=== PATIENT | female | born 1985 | race African-American/Black ===

== ENCOUNTER 2016-07-15 13:16 | Emergency (ER) | payer OTHER ==
[2016-07-15 13:37] VITALS: BP 140/80; PULSE 83; TEMP 97.5; BMI 23.3
--- NOTE | 2016-07-15 14:20 | PDOC ---
History of Present Illness - General Chief Complaint: Pain Stated Complaint: PAIN R FOOT Time Seen by Provider: 07/15/16 13:42 History Source: Patient Exam Limitations: No Limitations - History of Present Illness Initial Comments: 07/15/16 14:15 31-year-old female presents to the ED with complaints of right toe injury. 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 Patient states has been able to ambulate but has pain with step off. Patient denies previous injury to the affected area, radiation of pain, or history of immunosuppression. Timing/Duration: 1/2 hour Severity: mild Associated Symptoms: reports: denies symptoms Past History - Past Medical History Allergies/Adverse Reactions: Allergies Allergy/AdvReac Type Severity Reaction Status Date / Time No Known Allergies Allergy Verified 07/15/16 13:34 Home Medications: Ambulatory Orders NK [No Known Home Medication] 07/15/16 Asthma: Yes (CHILDHOOD) - Reproductive History LMP Normal: Yes Is Patient Now?: No - Immunization History Immunization Up to Date: Yes - Psycho/Social/Smoking Cessation Hx Anxiety: No Suicidal Ideation: No Smoking Status: No Smoking History: Never smoked Number of Cigarettes Smoked Daily: 0 Hx Alcohol Use: Yes (OCCASIONALLY) Drug/Substance Use Hx: No Substance Use Type: Alcohol Patient Lives Alone: No Lives with/in: spouse/SO Review of Systems - Review of Systems Able to Perform ROS?: Yes Musculoskeletal: Yes: Joint Pain (right first toe) Integumentary: No: Bruising, Erythema Neurological: No: Tingling *Physical Exam - Vital Signs Last Vital Signs Temp Pulse Resp BP Pulse Ox 97.5 F L 83 19 140/80 100 07/15/16 13:34 07/15/16 13:34 07/15/16 13:34 07/15/16 13:34 07/15/16 13:34 - Physical Exam General Appearance: Yes: Nourished, Appropriately Dressed. No: Apparent Distress HEENT: negative: Pale Conjunctivae Extremity: positive: Normal Capillary Refill, Normal Inspection, Normal Range of Motion (but with noted discomfort upon flexion of rt 1st toe dip joint) Integumentary: positive: Normal Color, Warm, Moist. negative: Swelling, Ecchymosis Neurologic: positive: Motor Strength 5/5 (ambulatory). negative: Sensory Deficit Medical Decision Making - Medical Decision Making 07/15/16 14:22 Patient with complaints of right first toe pain after it was ran over by a stretcher unoccupied by patient. Patient on exam had point tenderness at the right DIP joint but had full range of motion. At this time I recommend patient take Motrin apply ice and elevate. If pain continues tomorrow since she is on duty recommended to patient that she gets reevaluated. *DC/Admit/Observation/Transfer Diagnosis at time of Disposition: Toe pain, right - Discharge Dispostion Disposition: HOME Condition at time of disposition: Good - Patient Instructions Printed Discharge Instructions: DI for Contusion Additional Instructions: I recommend to take Motrin every 8 hours for inflammation and discomfort. Apply ice as much as you can tolerate for the next 2 days. Please elevate your foot to alleviate swelling if pain continues tomorrow at the same or worse level please be reevaluated.
[2016-07-15] MEDS ORDERED: IBUPROFEN 600 MG TABLET (FP) PO ONE ×2 (14:23→14:26)
== END 2016-07-15 14:39 | disposition home or self-care (01) ==
LOC: JERFT 13:16
DX: S90.111A Contusion of right great toe without damage to nail, initial encounter (principal); W22.8XXA Striking against or struck by other objects, initial encounter; Y93.89 Activity, other specified; Y92.238 Other place in hospital as the place of occurrence of the external cause; Y99.0 Civilian activity done for income or pay
CPT/HCPCS: 99281-25

== ENCOUNTER 2016-07-22 08:45 | Emergency (ER) | payer OTHER ==
[2016-07-22 08:49] VITALS: BP 126/72; PULSE 71; TEMP 98.5; BMI 23.6
--- NOTE | 2016-07-22 10:13 | PDOC ---
History of Present Illness - General Chief Complaint: Pain Stated Complaint: ABSCESS ON LT INDEX Time Seen by Provider: 07/22/16 09:20 History Source: Patient - History of Present Illness Occurred: reports: other Upper Extremity Pain Location: right: 2nd finger Past History - Past Medical History Allergies/Adverse Reactions: Allergies Allergy/AdvReac Type Severity Reaction Status Date / Time No Known Allergies Allergy Verified 07/22/16 08:49 Home Medications: Ambulatory Orders NK [No Known Home Medication] 07/15/16 Asthma: Yes (CHILDHOOD) - Immunization History Immunization Up to Date: Yes - Psycho/Social/Smoking Cessation Hx Anxiety: No Suicidal Ideation: No Smoking Status: No Smoking History: Never smoked Number of Cigarettes Smoked Daily: 0 Information on smoking cessation initiated: No Hx Alcohol Use: No Drug/Substance Use Hx: No Substance Use Type: None Review of Systems - Review of Systems Constitutional: No: Chills, Fever Integumentary: No: Erythema Neurological: No: Numbness *Physical Exam - Vital Signs Last Vital Signs Temp Pulse Resp BP Pulse Ox 98.5 F 71 18 126/72 99 07/22/16 08:46 07/22/16 08:46 07/22/16 08:46 07/22/16 08:46 07/22/16 08:46 - Physical Exam General Appearance: Yes: Appropriately Dressed. No: Apparent Distress HEENT: positive: Normal Voice Neck: positive: Supple Respiratory/Chest: negative: Respiratory Distress Extremity: positive: Other (~0.5 cm firm, smooth, rounded, rubbery swelling to base of R 2nd MCP, c/w ganglionic cyst) Integumentary: positive: Dry, Warm Neurologic: positive: Fully Oriented, Alert, Normal Mood/Affect Medical Decision Making - Medical Decision Making 07/22/16 10:07 31-year-old female, endorses history of localized swelling to second digit of R hand x 1 and 1/2 years, was seen in the ED but does not remember dx, here today because swelling have gradually gotten bigger x 2 months and now have discomfort with palpation and movement of finger. Pt well janneth and stable w/ ganglionic cyst to base of R 2nd MCP of volar aspect of R hand, FROM intact to finger. No e/o abscess as noted at triage. Dc w/ hand f/u for further evaluation /treatment *DC/Admit/Observation/Transfer Diagnosis at time of Disposition: Ganglion cyst - Discharge Dispostion Disposition: HOME Condition at time of disposition: Good - Referrals Referrals: Keaton Damon MD [Staff Physician] - - Patient Instructions Printed Discharge Instructions: Ganglion Cyst Additional Instructions: Please follow-up with Dr. Damon of orthopedics - Post Discharge Activity
== END 2016-07-22 09:37 | disposition home or self-care (01) ==
LOC: JERFT 08:45
DX: M67.441 Ganglion, right hand (principal)
CPT/HCPCS: 99281-25

== ENCOUNTER 2018-03-03 08:14 | Emergency (ER) | payer OTHER ==
[2018-03-03 08:54] VITALS: BP 115/81; PULSE 79; TEMP 98.6; BMI 21.2
--- NOTE | 2018-03-03 08:58 | PDOC ---
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 Denies swelling to face lips, no problems breathing. States left hand has a point tenderness and is pruritic 03/03/18 18:02 Timing/Duration: unsure, 24 hours Severity: mild, moderate Past History - Travel Traveled outside of the country in the last 30 days: No Close contact w/someone who was outside of country & ill: No - Past Medical History Allergies/Adverse Reactions: Allergies Allergy/AdvReac Type Severity Reaction Status Date / Time No Known Allergies Allergy Verified 03/03/18 08:26 Home Medications: Ambulatory Orders NK [No Known Home Medication] 07/15/16 Asthma: Yes COPD: No - Immunization History Immunization Up to Date: Yes - Suicide/Smoking/Psychosocial Hx Smoking Status: No Smoking History: Never smoked Have you smoked in the past 12 months: No Number of Cigarettes Smoked Daily: 0 Hx Alcohol Use: No Drug/Substance Use Hx: No Substance Use Type: None Review of Systems - Review of Systems Able to Perform ROS?: Yes Is the patient limited French proficient: Yes Constitutional: Yes: See HPI. No: Symptoms Reported, Fever, Malaise HEENTM: Yes: See HPI. No: Symptoms Reported Respiratory: Yes: See HPI. No: Symptoms reported, Cough, Wheezing Musculoskeletal: Yes: Symptoms Reported, See HPI, Muscle Pain Integumentary: Yes: Symptoms Reported, See HPI, Erythema, Pruritus All Other Systems: Reviewed and Negative *Physical Exam - Vital Signs Last Vital Signs Temp Pulse Resp BP Pulse Ox 98.6 F 79 16 115/81 98 03/03/18 08:26 03/03/18 08:26 03/03/18 08:26 03/03/18 08:26 03/03/18 08:26 - Physical Exam General Appearance: Yes: Nourished, Appropriately Dressed, Apparent Distress, Mild Distress HEENT: positive: SHANNON, Normal ENT Inspection, TMs Normal, Pharynx Normal. negative: Muffled/Hoarse voice, Tonsillar Erythema, Rhinorrhea Neck: positive: Supple. negative: Tender, Lymphadenopathy (R), Lymphadenopathy (L) Respiratory/Chest: positive: Lungs Clear Musculoskeletal: positive: Normal Inspection Extremity: positive: Normal Capillary Refill, Normal Range of Motion, Tender ( swelling with point lesion consistent with a type of insect bite to lateral aspect of left hand. No evidence of retained foreign body or stinger. Has full range of motion of fingers, and neurovascular intact). 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 Dressed with bacitracin ointment. Encouraged to use ice packs and given dose of Claritin of patient's own supply and will reevaluate in one hour. 03/03/18 10:27 After using ice and elevating, and one hour post Claritin dosing hand appears to be less swollen, less painful and pruritic. We'll discharge with plan to continue treatment for insect reaction and monitor for any changes in erythema evidence of infection. *DC/Admit/Observation/Transfer Diagnosis at time of Disposition: Insect bite Qualifiers: Encounter type: initial encounter Qualified Code(s): W57.XXXA - Bitten or stung by nonvenomous insect and other nonvenomous arthropods, initial encounter - Discharge Dispostion Disposition: HOME Condition at time of disposition: Stable Decision to Admit order: No - Referrals Referrals: Lorena Man MD [Primary Care Provider] - - Patient Instructions Printed Discharge Instructions: DI for Insect Bites and Stings Additional Instructions: Rest, keep cool and dry- avoid strenuous activity or hot /humid environments Less hot showers, no abrasive soaps May use ice packs, cool cloth on itching lesions May use heavy creams like Eucerin or Cetaphil to keep skin moist May apply Aveeno, calamine lotion, [id number] hydrocortisone creams as needed for symptoms May use Benadryl at night for antihistamine, Zyrtec/ Nkechi or Claritin for daytime antihistamine use to help with itching A use aloe vera gel to help assist with itching and inflammatory response May use [id number] hydrocortisone cream on all areas except face Try to identify cause for rash and avoid exposures Be sure to use insect sprays/repellent, ones with DEET are the most effective when outdoors Followup with PMD in one week if no resolution Make appointment with automatic thread winder for evaluation when possible Return to emergency department for worsening swelling, pus or purulent drainage from areas or any changes with swelling to lips, tongue, face or breathing problems from ALLERGIC reaction. - Post Discharge Activity Forms/Work/School Notes: Back to Work
== END 2018-03-03 10:27 | disposition home or self-care (01) ==
LOC: JER 08:14
DX: M79.89 Other specified soft tissue disorders (principal); W57.XXXA Bitten or stung by nonvenomous insect and other nonvenomous arthropods, initial encounter; Y93.89 Activity, other specified; Y92.512 Supermarket, store or market as the place of occurrence of the external cause; J45.909 Unspecified asthma, uncomplicated
CPT/HCPCS: 99281-25

== ENCOUNTER 2018-06-16 08:12 | Emergency (ER) | payer OTHER ==
[2018-06-16 08:33] VITALS: BP 119/72; PULSE 91; TEMP 98.4; BMI 21.2
[2018-06-16] MEDS ORDERED: ACETAMINOPHEN 1000 MG/100 ML VIAL (NON FORMULARY) IVPB ONE (09:03)
[2018-06-16] MEDS ORDERED: SODIUM CHLORIDE 0.9% 1000 ML INFUS.BAG IV ONE ×2 (09:03→10:42)
[2018-06-16] MEDS ORDERED: ONDANSETRON 4 MG/2 ML VIAL IVPUSH ONE (09:03)
[2018-06-16] MEDS ORDERED: ACETAMINOPHEN INJECTION 100 ML IVPB ONE (09:13)
[2018-06-16] MEDS ORDERED: ONDANSETRON 4 MG/2 ML VIAL ONE (09:13)
--- NOTE | 2018-06-16 09:13 | PDOC ---
History of Present Illness - General Chief Complaint: Pain, Acute Stated Complaint: Nausea/Vomiting Time Seen by Provider: 06/16/18 09:02 History Source: Patient Exam Limitations: No Limitations - History of Present Illness Initial Comments: 06/16/18 09:25 32 yo F with a hx of asthma presenting with N/V with epigastric pain. Per the patient, she states she was having epigastric discomfort yesterday and this morning has 2 x emesis events NBNB. Epigastric pain is 10/10, cramping, constant , non radiating, with no aggravating or relieving factors. Denies diarrhea, recent sick contacts, fever, chills, hematochezia, dysuria, and leg pain/ swelling. LMP in April 2018 and they are normally irregular. Denies hx of pancreatitis, cholelithiasis, and abdominal surgery. Shx: None Meds: None Allergies: NKDA Social: Denies tobacco, alcohol, and substance abuse. 06/16/18 09:29 Past History - Past Medical History Allergies/Adverse Reactions: Allergies Allergy/AdvReac Type Severity Reaction Status Date / Time No Known Allergies Allergy Verified 03/03/18 08:26 Home Medications: Ambulatory Orders Ondansetron [Zofran Odt -] 4 mg SL TID #21 od.tablet 06/16/18 Asthma: Yes COPD: No - Immunization History Immunization Up to Date: Yes - Suicide/Smoking/Psychosocial Hx Smoking Status: No Smoking History: Never smoked Have you smoked in the past 12 months: No Number of Cigarettes Smoked Daily: 0 Hx Alcohol Use: No Drug/Substance Use Hx: No Substance Use Type: None Review of Systems - Review of Systems Able to Perform ROS?: Yes Is the patient limited Bulgarian proficient: No Constitutional: No: Chills, Diaphoresis, Fever, Weakness HEENTM: No: Eye Pain, Recent change in vision, Ear Pain, Nose Pain, Throat Pain , Mouth Pain Respiratory: No: Cough, Shortness of Breath, Hemoptysis Cardiac (ROS): No: Chest Pain, Lightheadedness, Palpitations, Syncope, Chest Tightness ABD/GI: Yes: Nausea, Vomiting, Abdominal cramping. No: Constipated, Diarrhea, Poor Appetite, Poor Fluid Intake, Rectal Bleeding, Tarry Stools : No: Burning, Dysuria, Frequency, Hematuria Musculoskeletal: No: Back Pain, Joint Pain, Neck Pain Integumentary: No: Bruising, Erythema, Rash Neurological: No: Headache, Numbness, Tingling, Ataxia, Dizziness Psychiatric: No: Change in Appetite Endocrine: No: Unexplained Weight Gain Hematologic/Lymphatic: No: Anemia *Physical Exam - Vital Signs Last Vital Signs Temp Pulse Resp BP Pulse Ox 98.4 F 91 H 20 119/72 99 06/16/18 08:13 06/16/18 08:13 06/16/18 08:13 06/16/18 08:13 06/16/18 08:13 - Physical Exam General Appearance: Yes: Nourished, Appropriately Dressed. No: Apparent Distress HEENT: positive: EOMI, SHANNON, Normal Voice, Symmetrical, Pharynx Normal, Nasal Congestion, Hearing Grossly Normal. negative: Pale Conjunctivae, Scleral Icterus (R), Scleral Icterus (L), Muffled/Hoarse voice, Pharyngeal Erythema, Tonsillar Exudate, Tonsillar Erythema, Excessive drooling Neck: positive: Trachea midline, Supple. negative: Tender, Lymphadenopathy (R) , Lymphadenopathy (L), Tender lateral, Tender midline Respiratory/Chest: positive: Lungs Clear, Normal Breath Sounds. negative: Chest Tender, Respiratory Distress, Accessory Muscle Use Cardiovascular: positive: Regular Rhythm, Regular Rate, S1, S2. negative: Systolic Murmur Gastrointestinal/Abdominal: positive: Normal Bowel Sounds, Tender (epigastric region), Flat, Soft Lymphatic: negative: Adenopathy Musculoskeletal: positive: Normal Inspection. negative: CVA Tenderness, Vertebral Tenderness Extremity: positive: Normal Capillary Refill, Normal Inspection, Normal Range of Motion. 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 negative: EOM Palsy, Facial Droop Moderate Sedation - Procedure Monitoring Vital Signs: Procedure Monitoring Vital Signs Temperature 98.4 F 06/16/18 08:13 Pulse Rate 91 H 06/16/18 08:13 Respiratory Rate 20 06/16/18 08:13 Blood Pressure 119/72 06/16/18 08:13 O2 Sat by Pulse Oximetry (%) 99 06/16/18 08:13 ED Treatment Course - LABORATORY CBC & Chemistry Diagram: 06/16/18 09:04 06/16/18 09:00 - Medications Given in the ED: ED Medications Discontinued Medications Generic Name Dose Route Start Last Admin Trade Name Adry PRN Reason Stop Dose Admin Sodium Chloride 1,000 ml 06/16/18 09:03 06/16/18 09:11 Normal Saline - IV 06/16/18 09:04 1,000 ml ONCE ONE Administration Medical Decision Making - Medical Decision Making 32 yo F with a hx of asthma presenting with N/V with epigastric pain. Per the patient, she states she was having epigastric discomfort yesterday and this morning has 2 x emesis events NBNB. Initial vitals; Initial Vital Signs Temp Pulse Resp BP Pulse Ox 98.4 F 91 H 20 119/72 99 06/16/18 08:13 06/16/18 08:13 06/16/18 08:13 06/16/18 08:13 06/16/18 08:13 work up: ddx: gastroenteritis vs pancreatitis vs gastritis vs GERD vs influenza vs UTI Laboratory Tests 06/16/18 06/16/18 06/16/18 09:00 09:00 09:04 WBC 3.8 L RBC 4.32 Hgb 13.3 Hct 38.5 MCV 89.1 MCH 30.8 MCHC 34.6 RDW 13.2 Plt Count 262 MPV 8.7 Absolute Neuts (auto) 1.6 Neutrophils % 42.6 L Lymphocytes % 39.2 Monocytes % 12.6 H Eosinophils % 4.2 Basophils % 1.4 Nucleated RBC % 0 Sodium 138 Potassium 4.1 Chloride 107 Carbon Dioxide 25 Anion Gap 6 L BUN 8 Creatinine 0.7 Creat Clearance w eGFR > 60 Random Glucose 81 Calcium 9.3 Total Bilirubin 0.5 AST 24 ALT 18 Alkaline Phosphatase 65 Total Protein 8.5 H Albumin 4.4 Lipase 232 Beta HCG, Quant 1.5 Urine Color Urine Appearance Urine pH Ur Specific Gore Urine Protein Urine Glucose (UA) Urine Ketones Urine Blood Urine Nitrite Urine Bilirubin Urine Urobilinogen Ur Leukocyte Esterase Urine HCG, Qual Influenza A (Rapid) Negative Influenza B (Rapid) Negative 06/16/18 06/16/18 10:39 10:39 WBC RBC Hgb Hct MCV MCH MCHC RDW Plt Count MPV Absolute Neuts (auto) Neutrophils % Lymphocytes % Monocytes % Eosinophils % Basophils % Nucleated RBC % Sodium Potassium Chloride Carbon Dioxide Anion Gap BUN Creatinine Creat Clearance w eGFR Random Glucose Calcium Total Bilirubin AST ALT Alkaline Phosphatase Total Protein Albumin Lipase Beta HCG, Quant Urine Color Ltyellow Urine Appearance Clear Urine pH 7.0 D Ur Specific Gore 1.010 Urine Protein Negative Urine Glucose (UA) Negative Urine Ketones Negative Urine Blood Negative Urine Nitrite Negative Urine Bilirubin Negative Urine Urobilinogen Negative Ur Leukocyte Esterase Negative Urine HCG, Qual Negative Influenza A (Rapid) Influenza B (Rapid) labs within normal limits with negative lipase and influenza. patient was given GI cocktail with tylenol and fluids. she had significant improvement in her symptoms as wishes to be discharged. the patient was given strict return precautions and was well appearing and ambulatory at the time of discharge. Dispo: Discharge 06/17/18 22:55 *DC/Admit/Observation/Transfer Diagnosis at time of Disposition: Nausea & vomiting Qualifiers: Vomiting type: unspecified Vomiting Intractability: non-intractable Qualified Code(s): R11.2 - Nausea with vomiting, unspecified - Discharge Dispostion Disposition: HOME Condition at time of disposition: Stable Decision to Admit order: No - Prescriptions Prescriptions: Ondansetron [Zofran Odt -] 4 mg SL TID #21 od.tablet - Referrals Referrals: Lorena Man MD [Primary Care Provider] - - Patient Instructions Printed Discharge Instructions: DI for Vomiting -- Adult Additional Instructions: you were seen in the emergency department for the evaluation of nausea and vomiting. please follow up with your primary medical doctor within 1 week after discharge for follow up care and management. please return to the emergency department if you have worsening of symptoms or new concerning symptoms such as uncontrollable nausea and vomiting, fevers, shortness of breath, and chest pain. Thank you. - Post Discharge Activity Forms/Work/School Notes: Back to Work
[2018-06-16 09:18] LABS: BASO % 1.4 % (0-2.0); EOS % 4.2 % (0-4.5); HEMATOCRIT 38.5 % (32.4-45.2); HEMOGLOBIN 13.3 GM/dL (10.7-15.3); LYMPH % 39.2 % (8-40); MCH 30.8 pg (25.7-33.7); MCHC 34.6 g/dl (32.0-36.0); MEAN CELL VOLUME 89.1 fl (80-96); MEAN PLT VOLUME 8.7 fl (7.5-11.1); MONO % 12.6 % (3.8-10.2); NEUT % 42.6 % (42.8-82.8); PLATELET COUNT 262 K/MM3 (134-434); RBC 4.32 M/mm3 (3.60-5.2); RDW 13.2 % (11.6-15.6); WHITE BLOOD COUNT 3.8 K/mm3 (4.0-10.0)
[2018-06-16 09:58] LABS: ALBUMIN 4.4 g/dl (3.4-5.0); ALK PHOS 65 U/L (45-117); ANION GAP 6 MMOL/L (8-16); BILIRUBIN,TOTAL 0.5 mg/dL (0.2-1); BLOOD UREA NITROGEN 8 mg/dL (7-18); CALCIUM 9.3 mg/dL (8.5-10.1); CHLORIDE 107 mmol/L (98-107); CO2 25 mmol/L (21-32); CREATININE 0.7 mg/dL (0.55-1.3); GLUCOSE,RANDOM 81 mg/dL (74-106); LIPASE 232 U/L (73-393); POTASSIUM 4.1 mmol/L (3.5-5.1); SGOT/AST 24 U/L (15-37); SGPT/ALT 18 U/L (13-61); SODIUM 138 mmol/L (136-145); TOT PROT 8.5 g/dl (6.4-8.2)
--- NOTE | 2018-06-16 10:13 | PDOC ---
Attending Attestation - HPI HPI: 06/16/18 10:33 The patient is a 32 year old female with no significant PMH of who presents to the emergency department with nausea and vomiting since earlier this morning. The patient reports that she experienced some epigastric pain yesterday and today before her onset of her symptoms. She states that she experience 2 episodes of vomiting with her epigastric pain this morning. The patient states that her epigastric pain is crampy and constant and 10/10 in severity. She denies any worsening or alleviating factors. She denies any new food, or sick contacts. She state that her lmp al 04/2018 (regularly irregular). The patient denies any other symptoms. She denies any fever, chills, diarrhea, constipation , chest pain, shortness of breath, headache of dizziness. The patient denies any other complaints. - Physicial Exam PE: 06/16/18 10:34 Vitals: Triage vital signs reviewed General Appearance: No acute distress, well nourished, well developed Head: Atraumatic Neck: Supple; No nuchal rigidity Chest Wall: Nontender Cardiac: Regular rate and rhythm, no murmurs, no rubs, no gallops Lungs: Clear to auscultation bilateral, good air movement bilaterally Abdomen: (+)epigastric pain. Soft, nondistended, normal bowel sounds, nontender to palpation Extremities: Full range of motion to all extremities, no cyanosis, clubbing, or edema Skin: Warm and dry, no rashes or lesions, no rash, no petechiae Neuro: AOX3; Cranial Nerves 2-12 grossly intact, Strength intact to all extremities, Sensation intact to all extremities, gait normal Psych: Normal mood, normal affect - Medical Decision Making 06/16/18 10:34 The patient is a 32 year old female with no significant PMH of who presents to the emergency department with nausea and vomiting since earlier this morning. She will get more fluids and nausea medication. <Leonardo Real - Last Filed: 06/16/18 10:33> - Resident Resident Name: [place] - ED Attending Attestation I have performed the following: I have examined & evaluated the patient, The case was reviewed & discussed with the resident, I agree w/resident's findings & plan, Exceptions are as noted - Medical Decision Making History examination consistent with viral GI illness mild epigastric pain on exam we'll check labs hydrate GI cocktail observe and reassess Patient feels much better after GI cocktail abdominal pain resolved We'll discharge home with one-day work note History examination most consistent with viral illness Findings, the need for follow-up and strict return instructions discussed patient. <Harris Gore - Last Filed: 06/16/18 14:11> Attestations - Attestations 06/16/18 10:34 Documentation prepared by Leonardo Real, acting as medical corps officer for Harris Gore MD. <Leonardo Real - Last Filed: 06/16/18 10:33>
[2018-06-16] MEDS ORDERED: FAMOTIDINE 20 MG/50 ML IVPB 20 MG/50 ML MG IVPB ONE ×2 (10:41→10:45)
[2018-06-16] MEDS ORDERED: METOCLOPRAMIDE HCL INJECTION 10 MG/2 ML VIAL IVPUSH ONE (10:41)
[2018-06-16] MEDS ORDERED: METOCLOPRAMIDE HCL INJECTION 10 MG/2 ML VIAL ONE (10:45)
[2018-06-16 11:13] LABS: URINE APPEARANCE CLEAR; URINE BILIRUBIN NEGATIVE (<2.0 mg/dL); URINE COLOR LTYELLOW; URINE GLUCOSE (UA) NEGATIVE (NEGATIVE); URINE KETONE NEGATIVE (NEGATIVE); URINE LEUK ESTERASE NEGATIVE (NEGATIVE); URINE NITRITE NEGATIVE (NEGATIVE); URINE PROTEIN NEGATIVE (NEGATIVE); URINE UROBILINOGEN NEGATIVE mg/dL (0.2-1.0)
== END 2018-06-16 11:40 | disposition home or self-care (01) ==
LOC: JER 08:12
PROC: 3E033GC Introduction of Other Therapeutic Substance into Peripheral Vein, Percutaneous Approach (ICD-10-PCS; principal; 2018-06-16)
PROC: 3E033GC Introduction of Other Therapeutic Substance into Peripheral Vein, Percutaneous Approach (ICD-10-PCS; 2018-06-16)
PROC: 3E033GC Introduction of Other Therapeutic Substance into Peripheral Vein, Percutaneous Approach (ICD-10-PCS; 2018-06-16)
PROC: 3E033NZ Introduction of Analgesics, Hypnotics, Sedatives into Peripheral Vein, Percutaneous Approach (ICD-10-PCS; 2018-06-16)
DX: R11.2 Nausea with vomiting, unspecified (principal); Z87.09 Personal history of other diseases of the respiratory system
CPT/HCPCS: 36415; 80053; 81003; 83690; 84702; 84703; 85025; 87804; 99283-25; J0131; J7030

== ENCOUNTER 2018-10-12 08:07 | Emergency (ER) | payer OTHER | END 2018-10-12 10:28 | disposition home or self-care (01) | LOC: JERFT 08:07 ==

== ENCOUNTER 2019-03-21 07:35 | Emergency (ER) | payer OTHER ==
[2019-03-21 07:44] VITALS: BP 122/68; PULSE 80; TEMP 98.2; BMI 25.7
[2019-03-21] MEDS ORDERED: PSEUDOEPHEDRINE HCL 30 MG TABLET PO ONE (08:50)
[2019-03-21] MEDS ORDERED: DEXAMETHASONE LIQUID 0.5 MG/5 ML PO ONE (08:50)
--- NOTE | 2019-03-21 08:50 | PDOC ---
History of Present Illness - General Chief Complaint: Sore Throat Stated Complaint: SORE THROAT Time Seen by Provider: 03/21/19 07:50 Past History - Past Medical History Allergies/Adverse Reactions: Allergies Allergy/AdvReac Type Severity Reaction Status Date / Time No Known Allergies Allergy Verified 03/21/19 07:44 Home Medications: Ambulatory Orders Albuterol Sulfate Inhaler - [Ventolin Hfa Inhaler -] 1 - 2 inh PO QID PRN Ibuprofen 600 mg PO Q6H #30 tablet 03/21/19 Pseudoephedrine HCl 30 mg PO Q8H #21 tablet 03/21/19 Asthma: Yes COPD: No - Immunization History Immunization Up to Date: Yes - Psycho Social/Smoking Cessation Hx Smoking Status: No Smoking History: Never smoked Have you smoked in the past 12 months: No Number of Cigarettes Smoked Daily: 0 Information on smoking cessation initiated: No Hx Alcohol Use: No Drug/Substance Use Hx: No Substance Use Type: None *Physical Exam - Vital Signs Last Vital Signs Temp Pulse Resp BP Pulse Ox 98.2 F 80 18 122/68 100 03/21/19 07:42 03/21/19 07:42 03/21/19 07:42 03/21/19 07:42 03/21/19 07:42 Discharge - Discharge Information Problems reviewed: Yes Clinical Impression/Diagnosis: Pharyngitis Qualifiers: Pharyngitis/tonsillitis etiology: unspecified etiology Qualified Code(s): J02.9 - Acute pharyngitis, unspecified Condition: Stable Disposition: HOME - Admission No - Additional Discharge Information Prescriptions: Ibuprofen 600 mg PO Q6H #30 tablet Pseudoephedrine HCl 30 mg PO Q8H #21 tablet - Follow up/Referral Referrals: Lorena Man MD [Primary Care Provider] - - Patient Discharge Instructions Patient Printed Discharge Instructions: DI for Pharyngitis/Tonsillopharyngitis -- Adult Additional Instructions: You have a sore throat or pharyngitis. Rapid strep testing was negative today. You may take Motrin 600 mg every 6 hours as needed for pain. Please do warm water gargles and cough drops to help with your pain. Change your toothbrush when you started feeling better. Follow-up with your primary care doctor. Return to the ER for fever, difficulty breathing, difficulty swallowing, or if you have any changes in your symptoms. - Post Discharge Activity Work/Back to School Note: Back to Work
[2019-03-21] MEDS ORDERED: DEXAMETHASONE SOD PHOSPHATE 10 MG/1 ML VIAL ONE (08:55)
== END 2019-03-21 10:24 | disposition home or self-care (01) ==
LOC: JER 07:35
DX: J02.9 Acute pharyngitis, unspecified (principal); J45.909 Unspecified asthma, uncomplicated
CPT/HCPCS: 87070; 87880; 99281-25

== ENCOUNTER 2019-12-31 10:22 | Emergency (ER) | payer OTHER ==
[2019-12-31 10:28] VITALS: BP 115/83; PULSE 89; TEMP 99; BMI 27.1
[2019-12-31] MEDS ORDERED: KETOROLAC TROMETHAMINE 60 MG/2 ML VIAL IM ONE (10:40)
[2019-12-31] MEDS ORDERED: METHOCARBAMOL 500 MG TABLET PO ONE (10:40)
[2019-12-31] MEDS ORDERED: KETOROLAC TROMETHAMINE 60 MG/2 ML VIAL ONE (10:46)
[2019-12-31] MEDS ORDERED: METHOCARBAMOL 500 MG TABLET ONE (10:46)
--- NOTE | 2019-12-31 10:48 | PDOC ---
History of Present Illness - General Chief Complaint: Pain Stated Complaint: LT HAND NUMBNESS Time Seen by Provider: 12/31/19 10:33 History Source: Patient Exam Limitations: Clinical Condition - History of Present Illness Initial Comments: 12/31/19 10:42 Patient with no significant past medical history present with complaint of persistent worsening posterior right shoulder and scapular pain which is worse with elevation of arm and arm movement for 3 days without any trauma or injury. Patient also reports 2 days history of pain to palmar aspect of left hand with tingling sensation in left fingers without trauma. 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 Patient has not taken anything for symptoms. Patient reported posterior right shoulder and scapular pain started after scratching her back few days ago. Patient described pain as severe aching pain. Denies any other symptoms Is this a multiple visit Asthma Patient?: No Timing/Duration: other (3 days) Past History - Medical History Allergies/Adverse Reactions: Allergies Allergy/AdvReac Type Severity Reaction Status Date / Time No Known Allergies Allergy Verified 12/31/19 10:25 Home Medications: Ambulatory Orders Methocarbamol [Robaxin -] 500 mg PO BID PRN #14 tablet 12/31/19 Naproxen 500 mg PO BID PRN #20 tablet 12/31/19 Asthma: Yes COPD: No - Reproductive History Is Patient Now?: No - Immunization History Immunization Up to Date: Yes - Psycho-Social/Smoking History Smoking Status: No Smoking History: Never smoked Have you smoked in the past 12 months: No Number of Cigarettes Smoked Daily: 0 - Substance Abuse Hx (Audit-C & DAST Scrn) How often the patient has a drink containing alcohol: Never Score: In Men: 4 or > Positive; In Women: 3 or > Positive: 0 Screen Result (Pos requires Nsg. Audit-10AR): Negative In the last yr the pt used illegal drug/Rx for NonMed reason: No Score: Yes response is considered Positive: 0 Screen Result (Positive result requires Nsg. DAST-10): Negative Review of Systems - Review of Systems Able to Perform ROS?: Yes Is the patient limited Romanian proficient: No Constitutional: No: Chills, Fever, Malaise HEENTM: No: Symptoms Reported, See HPI, Eye Pain, Blurred Vision, Tearing, Recent change in vision, Double Vision, Cataracts, Ear Pain, Ocular Prothesis, Ear Discharge, Nose Pain, Nose Congestion, Tinnitus, Nose Bleeding, Hearing Loss, Throat Pain, Throat Swelling, Mouth Pain, Dental Problems, Difficulty Swallowing, Mouth Swelling, Other Respiratory: No: Symptoms reported, See HPI, Cough, Orthopnea, Shortness of Breath, SOB with Exertion, SOB at Rest, Stridor, Wheezing, Productive cough, Hemoptysis, Other Cardiac (ROS): No: Symptoms Reported ABD/GI: No: Symptoms Reported, Nausea, Vomiting Musculoskeletal: Yes: Symptoms Reported, See HPI, Joint Pain (right shoulder), Muscle Pain (left hand) Integumentary: No: Symptoms Reported Neurological: Yes: Symptoms reported, Tingling (left fingers). No: Numbness, Paresthesia All Other Systems: Reviewed and Negative *Physical Exam - Vital Signs Last Vital Signs Temp Pulse Resp BP Pulse Ox 99.0 F 89 20 115/83 100 12/31/19 10:25 12/31/19 10:25 12/31/19 10:25 12/31/19 10:25 12/31/19 10:25 - Physical Exam 12/31/19 10:46 GENERAL: Well developed, well nourished. Awake and alert in mild acute distress. CARDIOVASCULAR: Regular rate and rhythm. No murmurs, rubs, or gallops. PULMONARY: No evidence of respiratory distress. Lungs clear to auscultation bilaterally. No wheezing, rales or rhonchi. MUSCULOSKELETAL : Moderate point tenderness over right scapular and posterior aspect of right shoulder which is worse with elevation of right arm above 90 degrees or abduction of right upper extremity. Normal strength to right upper extremity. Negative arm drop test. Mild point tenderness over thenar muscle of palmar aspect of left hand. Normal sensory to left hand. Normal strength to left hand. No bony deformities SKIN: Warm and dry. Normal capillary refill. No rashes. No jaundice. NEUROLOGICAL: Alert, awake, appropriate. No motor deficits in the lower extremities. Gait is normal without ataxia. PSYCHIATRIC: Cooperative. Good eye contact. Appropriate mood and affect. General Appearance: Yes: Nourished, Appropriately Dressed, Mild Distress ED Treatment Course - RADIOLOGY Radiology Studies Ordered: Category Date Time Status SCAPULA [RAD] Stat Radiology 12/31/19 10:40 Ordered SHOULDER W/TRANS-RIGHT [RAD] Stat Radiology 12/31/19 10:40 Ordered Medical Decision Making - Medical Decision Making 12/31/19 10:44 Patient with no significant past medical history present with complaint of persistent worsening posterior right shoulder and scapular pain which is worse with elevation of arm and arm movement for 3 days without any trauma or injury. Patient also reports 2 days history of pain to palmar aspect of left hand with tingling sensation in left fingers without trauma. 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 Patient has not taken anything for symptoms. Patient reported posterior right shoulder and scapular pain started after scratching her back few days ago. Patient described pain as severe aching pain. Denies any other symptoms Exam significant for moderate tenderness to posterior aspect of right shoulder and over right scapular which is worse with elevation of right arm above 90 degrees. Negative arm drop test. 5 out of 5 strength to bilateral upper extr emities. Mild point tenderness over thenar muscle of palmar aspect of left hand. Full range of motion of left hand. No tenderness to wrist. Patient symptoms likely shoulder strain versus hand strain from overuse. X-ray of right shoulder scapula ordered to rule out acute abnormality. Toradol 60 mg IM and Robaxin 500 mg p.o. ordered for pain and spasm. Treat based on imaging results 12/31/19 11:29 X-ray shows no acute normality. Patient symptoms likely musculoskeletal strain with spasm. Patient stable for discharge on naproxen for pain and Robaxin for spasm with advised to do heat therapy with orthopedics follow-up Discharge - Discharge Information Problems reviewed: Yes Clinical Impression/Diagnosis: Musculoskeletal pain Strain of right shoulder Qualifiers: Encounter type: initial encounter Qualified Code(s): S46.911A - Strain of unspecified muscle, fascia and tendon at shoulder and upper arm level, right arm, initial encounter Strain of left hand and finger Qualifiers: Encounter type: initial encounter Qualified Code(s): S66.912A - Strain of unspecified muscle, fascia and tendon at wrist and hand level, left hand, initial encounter Condition: Stable Disposition: HOME - Admission No - Additional Discharge Information Prescriptions: Naproxen 500 mg PO BID PRN #20 tablet PRN Reason: pain Methocarbamol [Robaxin -] 500 mg PO BID PRN #14 tablet PRN Reason: spasm - Follow up/Referral Referrals: Sanjay Stover [Primary Care Provider] - Ty Partida DO [Staff Physician] - - Patient Discharge Instructions Patient Printed Discharge Instructions: DI for Shoulder Sprain Additional Instructions: X-ray of your shoulder was normal and shows no acute abnormality. Your pain is likely from muscle spasm. Take prescribed medication as prescribed for pain and spasm. Apply heat to shoulder area as needed for pain. Follow-up referred to orthopedics if symptoms persist for more than 3 days - Post Discharge Activity Work/Back to School Note: Back to Work
--- NOTE | 2020-01-02 10:27 | EKG ---
Test Reason : Blood Pressure : / mmHG Vent. Rate : 078 BPM Atrial Rate : 078 BPM P-R Int : 140 ms QRS Dur : 080 ms QT Int : 390 ms P-R-T Axes : 040 033 033 degrees QTc Int : 444 ms NORMAL SINUS RHYTHM NORMAL ECG WHEN COMPARED WITH ECG OF 14-JUL-2015 10:45, NO SIGNIFICANT CHANGE WAS FOUND Confirmed by MD Dean Daniel ([id number]) on 01/02/2020 10:27:05 AM Referred By: Confirmed By:Nate Dean MD
== END 2019-12-31 11:36 | disposition home or self-care (01) ==
LOC: JERFT 10:22
PROC: 3E0234Z Introduction of Serum, Toxoid and Vaccine into Muscle, Percutaneous Approach (ICD-10-PCS; principal; 2019-12-31)
DX: S46.911A Strain of unspecified muscle, fascia and tendon at shoulder and upper arm level, right arm, initial encounter (principal); S46.912A Strain of unspecified muscle, fascia and tendon at shoulder and upper arm level, left arm, initial encounter
CPT/HCPCS: 73010-TC-FY; 73030-TC-RT-FY; 93005; 93010; 99284-25

== ENCOUNTER 2020-05-06 13:04 | Emergency (ER) | payer OTHER ==
[2020-05-06 13:18] VITALS: BP 137/81; PULSE 84; TEMP 98.5; BMI 23.9
== END 2020-05-06 14:16 | disposition home or self-care (01) ==
LOC: JERFT 13:04 → JER 13:04 → JERFT 14:16
DX: R06.02 Shortness of breath (principal)
CPT/HCPCS: 71046-TC-FY; 99284-25

== ENCOUNTER 2020-06-16 12:45 | Emergency (ER) | payer OTHER ==
[2020-06-16 13:10] VITALS: TEMP 98.7
[2020-06-16 13:29] VITALS: BMI 25.6
[2020-06-16 16:00] LABS: BASO % 1.3 % (0-2.0); EOS % 6.7 % (0-4.5); HEMATOCRIT 35.2 % (32.4-45.2); HEMOGLOBIN 11.6 GM/dL (10.7-15.3); LYMPH % 36.8 % (8-40); MCH 29.5 pg (25.7-33.7); MEAN CELL VOLUME 89.3 fl (80-96); MEAN PLT VOLUME 8.9 fl (7.5-11.1); MONO % 11.7 % (3.8-10.2); NEUT % 43.5 % (42.8-82.8); PLATELET COUNT 287 K/MM3 (134-434); RBC 3.94 M/mm3 (3.60-5.2); RDW 14.2 % (11.6-15.6); WHITE BLOOD COUNT 5.3 K/mm3 (4.0-10.0)
[2020-06-16 16:19] LABS: CHLORIDE 103 mmol/L (98-107); SODIUM 137 mmol/L (136-145)
[2020-06-16 16:21] LABS: CALCIUM 9.8 mg/dL (8.5-10.1)
[2020-06-16 16:22] LABS: ALBUMIN 4.3 g/dl (3.4-5.0); ANION GAP 5 MMOL/L (8-16); CO2 29 mmol/L (21-32); GLUCOSE,RANDOM 87 mg/dL (74-106)
[2020-06-16 16:25] LABS: CREATININE 0.7 mg/dL (0.55-1.3); SGOT/AST 16 U/L (15-37); SGPT/ALT 16 U/L (13-61)
[2020-06-16 16:27] LABS: BILIRUBIN,TOTAL 0.2 mg/dL (0.2-1); TOT PROT 8.3 g/dl (6.4-8.2)
[2020-06-16 16:28] LABS: ALK PHOS 59 U/L (45-117)
[2020-06-16 17:08] VITALS: BP 127/83; PULSE 80
== END 2020-06-16 16:10 | disposition left against medical advice (07) ==
LOC: JER 12:45
DX: R42 Dizziness and giddiness (principal)
CPT/HCPCS: 36415; 80053; 84702; 84703; 85025; 93005; 93010; 99284-25

== ENCOUNTER 2020-09-30 14:56 | Emergency (ER) | payer OTHER ==
[2020-10-01 07:12] LABS: SARS-CoV-2 NAA Not Detected (Not Detected)
== END 2020-09-30 15:38 | disposition home or self-care (01) ==
LOC: JVIRT 14:56
DX: Z20.822 Contact with and (suspected) exposure to COVID-19 (principal)
CPT/HCPCS: C9803; G2251-GT; Q3014-GT; U0003; U0005

== ENCOUNTER 2020-11-12 11:49 | Emergency (ER) | payer OTHER | END 2020-11-12 13:07 | disposition home or self-care (01) | LOC: JVIRT 11:49 | DX: Z11.52 Encounter for screening for COVID-19 (principal) | CPT/HCPCS: C9803; Q3014-GT; U0003; U0005 ==

== ENCOUNTER 2021-09-09 08:00 | Emergency (ER) | payer OTHER ==
[2021-09-09 08:31] VITALS: BMI 26.9
[2021-09-09 09:17] LABS: ALBUMIN 4.3 g/dl (3.4-5.0); CALCIUM 9.2 mg/dL (8.5-10.1)
[2021-09-09 09:18] LABS: BLOOD UREA NITROGEN 7.1 mg/dL (7-18)
[2021-09-09 09:21] LABS: CREATININE 0.6 mg/dL (0.55-1.3)
[2021-09-09 09:22] LABS: BILIRUBIN,TOTAL 0.5 mg/dL (0.2-1); TOT PROT 8.1 g/dl (6.4-8.2)
[2021-09-09 12:50] VITALS: BP 121/66; PULSE 75; TEMP 98.3
== END 2021-09-09 13:05 | disposition home or self-care (01) ==
LOC: JER 08:00
DX: R07.89 Other chest pain (principal)
CPT/HCPCS: 36415; 71275-TC; 80053; 84484; 84703; 93005; 93010; 93971-TC; 99285-25; Q9967

== ENCOUNTER 2022-07-30 11:20 | Emergency (ER) | payer OTHER ==
[2022-07-30 11:56] VITALS: BP 133/90; PULSE 105; RESP 16; TEMP 99.7; BMI 26.3
[2022-07-30] MEDS ORDERED: ACETAMINOPHEN 500 MG TABLET (FP) PO ONE (11:59)
[2022-07-30] MEDS ORDERED: ACETAMINOPHEN 500 MG TABLET (FP) ONE (12:00)
[2022-07-30 12:44] LABS: THROAT:GRP A STREP NOT DETECTED (NOTDETECTED)
== END 2022-07-30 12:27 | disposition home or self-care (01) ==
LOC: JERFT 11:20 → JER 11:20 → JERFT 12:27
DX: J06.9 Acute upper respiratory infection, unspecified (principal)
CPT/HCPCS: 0241U-QW; 87651; 99283-25

== ENCOUNTER 2023-10-06 11:14 | Emergency (ER) | payer OTHER ==
[2023-10-06 11:21] VITALS: BP 112/76; PULSE 81; RESP 17; TEMP 97.8; BMI 27.1
[2023-10-06] MEDS ORDERED: KETOROLAC TROMETHAMINE 15 MG/ML VIAL ONE (11:32)
[2023-10-06] MEDS: KETOROLAC TROMETHAMINE 15 MG/ML VIAL IM ONE (11:36)
== END 2023-10-06 14:12 | disposition home or self-care (01) ==
LOC: JERFT 11:14
PROC: 3E0233Z Introduction of Anti-inflammatory into Muscle, Percutaneous Approach (ICD-10-PCS; principal; 2023-10-06)
DX: M22.2X1 Patellofemoral disorders, right knee (principal); M25.561 Pain in right knee; M25.461 Effusion, right knee
CPT/HCPCS: 73562-TC-RT-FY; 93971-TC; 99284-25

== ENCOUNTER 2023-10-12 07:01 | Emergency (ER) | payer OTHER ==
[2023-10-12 07:29] VITALS: BMI 26.0
[2023-10-12] MEDS: SODIUM CHLORIDE 1,000 ML IV STA ×2 (08:10→10:35)
[2023-10-12] MEDS: ACETAMINOPHEN 1000 MG/100 ML BAG IVPB ONE (08:10)
[2023-10-12] MEDS ORDERED: ACETAMINOPHEN INJECTION 100 ML IVPB ONE (08:25)
[2023-10-12] MEDS ORDERED: FAMOTIDINE 20 MG/50 ML IVPB 20 MG/50 ML MG IVPB ONE (08:25)
[2023-10-12] MEDS: FAMOTIDINE 20 MG/50 ML IVPB 20 MG/50 ML MG IVPB ONE (09:01)
[2023-10-12 09:08] LABS: BASO % 0.9 % (0-2.0); EOS % 5.4 % (0-4.5); HEMATOCRIT 30.8 % (32.4-45.2); HEMOGLOBIN 10.5 GM/dL (10.7-15.3); LYMPH % 3.7 % (8-40); MCH 31.2 pg (25.7-33.7); MCHC 34.2 g/dl (32.0-36.0); MEAN CELL VOLUME 91.4 fl (80-96); MEAN PLT VOLUME 7.6 fl (7.5-11.1); PLATELET COUNT 186 10^3/uL (134-434); RBC 3.37 M/mm3 (3.60-5.2); RDW 14.4 % (11.6-15.6); WHITE BLOOD COUNT 5.6 K/mm3 (4.0-10.0)
[2023-10-12 09:31] LABS: POTASSIUM 3.7 mmol/L (3.5-5.1)
[2023-10-12 09:34] LABS: ALBUMIN 3.7 g/dl (3.4-5.0); BLOOD UREA NITROGEN 5.7 mg/dL (7-18)
[2023-10-12 09:37] LABS: CREATININE 0.6 mg/dL (0.55-1.3)
[2023-10-12 09:39] LABS: BILIRUBIN,TOTAL 0.3 mg/dL (0.2-1); TOT PROT 6.9 g/dl (6.4-8.2)
[2023-10-12 09:55] VITALS: TEMP 99.9
[2023-10-12] MEDS ORDERED: ONDANSETRON 4 MG/2 ML VIAL ONE (09:55)
[2023-10-12] MEDS: ONDANSETRON 4 MG/2 ML VIAL IVPUSH ONE (10:00)
[2023-10-12] MEDS ORDERED: KETOROLAC TROMETHAMINE 15 MG/ML VIAL ONE (10:37)
[2023-10-12] MEDS: KETOROLAC TROMETHAMINE 15 MG/ML VIAL IVPUSH ONE (10:40)
[2023-10-12 11:43] VITALS: RESP 18
[2023-10-12 12:26] LABS: URINE APPEARANCE CLEAR; URINE BILIRUBIN NEGATIVE (NEGATIVE); URINE COLOR YELLOW; URINE GLUCOSE (UA) NEGATIVE (NEGATIVE); URINE KETONE 1+ (NEGATIVE); URINE LEUK ESTERASE NEGATIVE (NEGATIVE); URINE NITRITE NEGATIVE (NEGATIVE); URINE PROTEIN NEGATIVE (NEGATIVE); URINE UROBILINOGEN 0.2 mg/dL (0.2-1.0)
[2023-10-12 13:14] VITALS: BP 119/71; PULSE 91
== END 2023-10-12 13:14 | disposition home or self-care (01) ==
LOC: JER 07:01
PROC: 3E033GC Introduction of Other Therapeutic Substance into Peripheral Vein, Percutaneous Approach (ICD-10-PCS; principal; 2023-10-12)
PROC: 3E033NZ Introduction of Analgesics, Hypnotics, Sedatives into Peripheral Vein, Percutaneous Approach (ICD-10-PCS; 2023-10-12)
PROC: 3E0333Z Introduction of Anti-inflammatory into Peripheral Vein, Percutaneous Approach (ICD-10-PCS; 2023-10-12)
PROC: 3E033GC Introduction of Other Therapeutic Substance into Peripheral Vein, Percutaneous Approach (ICD-10-PCS; 2023-10-12)
PROC: 3E0337Z Introduction of Electrolytic and Water Balance Substance into Peripheral Vein, Percutaneous Approach (ICD-10-PCS; 2023-10-12)
PROC: 3E0337Z Introduction of Electrolytic and Water Balance Substance into Peripheral Vein, Percutaneous Approach (ICD-10-PCS; 2023-10-12)
DX: U07.1 COVID-19 (principal); R07.9 Chest pain, unspecified; R10.13 Epigastric pain; R10.11 Right upper quadrant pain; R50.9 Fever, unspecified; R51.9 Headache, unspecified
CPT/HCPCS: 0241U-QW; 36415; 71045-TC-FY; 76705-TC; 80053; 81003; 83690; 84484; 84703; 85025; 85379; 87086; 93005; 93010; 99285-25; J0131

== ENCOUNTER 2024-09-20 07:32 | Emergency (ER) | payer OTHER ==
[2024-09-20 07:53] VITALS: BP 132/87; PULSE 78; RESP 18; TEMP 98; BMI 25.1
[2024-09-20] MEDS ORDERED: LIDOCAINE 4% PATCH TP ONE (08:23)
[2024-09-20] MEDS ORDERED: ACETAMINOPHEN 325 MG TABLET (FP) ONE (08:23)
[2024-09-20] MEDS ORDERED: KETOROLAC TROMETHAMINE 30 MG/1 ML VIAL ONE (08:23)
[2024-09-20] MEDS: KETOROLAC TROMETHAMINE 30 MG/1 ML VIAL IM ONE (08:30)
[2024-09-20] MEDS: LIDOCAINE 5% TOPICAL PATCH TP ONE (08:30)
[2024-09-20] MEDS: ACETAMINOPHEN 325 MG TABLET (FP) PO ONE (08:30)
[2024-09-20 08:50] LABS: EPI CELLS 10 /uL (0-25.1); HYALINE CASTS 1 /uL (0-3.1); URINE APPEARANCE CLEAR; URINE BACTERIA 56 /uL (0-1359); URINE BILIRUBIN NEGATIVE (NEGATIVE); URINE COLOR YELLOW; URINE GLUCOSE (UA) NEGATIVE (NEGATIVE); URINE KETONE NEGATIVE (NEGATIVE); URINE LEUK ESTERASE 1+ (NEGATIVE); URINE NITRITE NEGATIVE (NEGATIVE); URINE PROTEIN NEGATIVE (NEGATIVE); URINE RBC 12 /uL (0-23.9); URINE UROBILINOGEN 0.2 mg/dL (0.2-1.0); URINE WBC 35 /uL (0-25.8)
[2024-09-20] MEDS ORDERED: LIDOCAINE PATCH REMOVAL MC ONE (22:00)
== END 2024-09-20 10:26 | disposition home or self-care (01) ==
LOC: JER 07:32 → JERFT 07:32
PROC: 3E0333Z Introduction of Anti-inflammatory into Peripheral Vein, Percutaneous Approach (ICD-10-PCS; principal; 2024-09-20)
DX: S29.012A Strain of muscle and tendon of back wall of thorax, initial encounter (principal); M41.34 Thoracogenic scoliosis, thoracic region; X58.XXXA Exposure to other specified factors, initial encounter
CPT/HCPCS: 71046-TC-FY; 72070-TC-FY; 73010-TC-FY; 81003; 87086; 99284-25